=== PATIENT | female | born 1985 | race Caucasian/White ===

== ENCOUNTER 2017-12-18 13:20 | Emergency (ER) | payer OTHER ==
[~2017-12-18] VITALS: Ht 162.6 cm; Wt 59.9 kg
[2017-12-18] MEDS ORDERED: SYNTHROID50 MCG PO (13:33)
== END 2017-12-18 19:47 | disposition home or self-care (01) ==
LOC: ER 13:20
DX: O20.0 Threatened abortion (principal); O23.31 Infections of other parts of urinary tract in pregnancy, first trimester; Z34.81 Encounter for supervision of other normal pregnancy, first trimester

== ENCOUNTER 2018-04-28 12:20 | Outpatient (CLI) | payer OTHER ==
[~2018-04-28 12:20] MED LIST: SYNTHROID50 MCG PO
== END 2018-04-28 12:42 | disposition home or self-care (01) ==
LOC: SONOGRAMA 12:20
DX: N93.8 Other specified abnormal uterine and vaginal bleeding (principal)

== ENCOUNTER 2020-09-10 10:24 | Outpatient (CLI) | payer BC | END 2020-09-10 10:27 | disposition home or self-care (01) | LOC: RAD 10:24 | PROVIDERS: ATTEND Physical Medicine & Rehabilitation | DX: M25.571 Pain in right ankle and joints of right foot (principal) ==